=== PATIENT | female | born 1975 | race Caucasian/White ===

== ENCOUNTER 2020-10-11 07:39 | Emergency (ER) | payer MEDICAID, SELFPAY ==
[2020-10-11 07:42] VITALS: BP 136/95; PULSE 72; RESP 16; TEMP 36.2; O2SAT 100; BMI 39.9
--- NOTE | 2020-10-11 07:52 | ED.DCSUM_ITS ---
History of Present Illness Chief Complaint: Ear Problem Informant: Patient Onset: Today Maximum Severity: Mild Narrative: Patient presents complaining of right ear pain began this morning, She has a history of chronic intermittent right ear pain for years she has been seen by multiple providers including ENT the last ENT physician told her that they did not know why she was having the ear pain she believes her symptoms are related to some type of infection she indicates usually treated with an antibiotic pill eardrops and Percocet, she is recently moved to the [facility] and has no providers locally Complains of some sinus pressure no fever no cough no coronavirus no other complaints Past Medical History - Allergies and Home Meds Allergies/Adverse Reactions: Allergies gabapentin [From Neurontin] Adverse Reaction (Verified 10/11/20 07:42) PT UNSURE OF REACTION ketorolac [From Toradol] Adverse Reaction (Verified 10/11/20 07:42) Diarrhea tetracycline Adverse Reaction (Verified 10/11/20 07:42) PT UNSURE OF REACTION tramadol Adverse Reaction (Verified 10/11/20 07:42) Diarrhea Primary Care Physician: NOT,DEFINED [Primary Care Provider] - Past Medical History: - - Acute recurrent right ear pain Smoking Status: Current every day smoker Review of Systems General: Denies: Chills, Fever, Sweats Eyes: Denies: Visual changes - bilaterally, Diplopia ENT: Reports: Right ear pain, Rhinorrhea. Denies: Sore throat Cardiovascular: Denies: Chest pain, Palpitations Respiratory: Denies: Dyspnea, Cough, Dyspnea on exertion Gastrointestinal: Denies: Abdominal pain, Nausea, Vomiting, Diarrhea, Melena, Hematochezia Genitourinary: Denies: Dysuria, Hematuria, Frequency Musculoskeletal: Denies: Back pain, Extremity Pain Skin: Denies: Rash, Wounds Neurological: Denies: Headache, Weakness, Numbness Physical Exam Vital Signs/Narrative: Vital Signs Temp Pulse Resp BP Pulse Ox 10/11/20 07:42 97.1 F L 72 16 136/95 H 100 General: Well nourished, Well developed, No Acute Distress Head: Normocephalic, Atraumatic Eyes: Perrl, EOMI ENT: Moist mucous membranes, No rhinorrhea, - - Both TMs are clear there is some wax but no obvious signs of otitis she has discomfort when I pull on her right tragus but the canal appears normal she has minimal rhinorrhea the throat is unremarkable neck is supple no adenopathy the rest of the exam is unremarkable Neck: Supple, Nontender Cardiovascular: Regular rate, Regular rhythm, No murmurs Respiratory: No distress, CTA bilaterally, Chest nontender Abdomen: Soft, Nontender, Nondistended, Normal bowel sounds Back: Nontender, Normal Inspection Extremities: Nontender, No edema Skin: Normal color, No rash Neurological: Alert, Oriented x3, Cranial nerves II-XII grossly intact, Normal Strength, Normal Sensation Psychological: Normal affect, Normal Mood Diagnostic/Tx/Re-eval - Medical Decision Making Right ear pain intermittent she is concerned she has an infection I explained to the is no clinical findings to suggest that however given that it is a Monday she has no providers she indicates usually treated with an antibiotic Keflex will be given Cortisporin otic solution I explained to her Percocet is not provided for this condition she will be started on Naprosyn and should follow-up with her local provider of choice or on-call physicians return for change in symptoms in addition she will use [id number] Flonase Home stable Final impression is acute recurrent right ear pain ED Disposition - Plan for ED Patient: Instructions: ED Earache Without Infection (Adult) Prescriptions: Neomyc/Colist/Hydrocort/Thonzn [Cortisporin-Tc Ear Suspension] 10 ml OT 4X/DAY #1 drops.susp Prescription Printed Cephalexin [Keflex] 500 mg PO Q6 #40 cap Prescription Printed Naproxen [Naprosyn] 500 mg PO BID PRN #20 tab Prescription Printed Referrals: NOT,DEFINED [Primary Care Provider] -
== END 2020-10-11 08:12 | disposition home or self-care (01) ==
LOC: ED 08:03
PROVIDERS: Emergency Provider Emergency Medicine
DX: H92.01 Otalgia, right ear (principal); F17.200 Nicotine dependence, unspecified, uncomplicated; Z88.1 Allergy status to other antibiotic agents; Z88.5 Allergy status to narcotic agent; Z88.8 Allergy status to other drugs, medicaments and biological substances
CPT/HCPCS: 99282

== ENCOUNTER 2020-12-07 05:44 | Emergency (ER) | payer MEDICAID, SELFPAY ==
[2020-12-07 05:44] VITALS: BP 145/53; PULSE 78; RESP 16; TEMP 36.2; O2SAT 96; BMI 46.6
--- NOTE | 2020-12-07 06:04 | ED.VIS.GEN ---
History of Present Illness Chief Complaint: Upper Extremity Injury Informant: Patient Onset: Yesterday Narrative: Patient is a 45-year-old female presenting with right wrist pain. She is right-hand dominant. She states she went to coal picker a bag of salt at home yesterday when she suddenly had pain at the base of her thumb and into her wrist. It radiates up her arm. She now has pain with any type of lifting movement of her wrist. She denies any weakness. She denies any trauma. 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 No other complaints at this time. Patient last had Motrin today evening. Past Medical History - Allergies and Home Meds Allergies/Adverse Reactions: Allergies gabapentin [From Neurontin] Adverse Reaction (Verified 12/07/20 05:47) PT UNSURE OF REACTION ketorolac [From Toradol] Adverse Reaction (Verified 12/07/20 05:47) Diarrhea tetracycline Adverse Reaction (Verified 12/07/20 05:47) PT UNSURE OF REACTION tramadol Adverse Reaction (Verified 12/07/20 05:47) Diarrhea Primary Care Physician: Care Physician,No Primary [Primary Care Provider] - Past Medical History: - - Hypertension Surgical History: noncontributory Smoking Status: Current every day smoker Review of Systems General: Denies: Chills, Fever, Sweats Eyes: Denies: Visual changes - bilaterally, Diplopia ENT: Denies: Rhinorrhea, Sore throat Cardiovascular: Denies: Chest pain, Palpitations Respiratory: Denies: Dyspnea, Cough, Dyspnea on exertion Gastrointestinal: Denies: Abdominal pain, Nausea, Vomiting Musculoskeletal: Reports: Extremity Pain - Right hand/wrist. Denies: Myalgias, Arthralgias, Back pain Skin: Denies: Rash, Wounds Neurological: Denies: Headache, Weakness, Parasthesia, Numbness Physical Exam Vital Signs/Narrative: Vital Signs Temp Pulse Resp BP Pulse Ox 12/07/20 05:44 97.2 F L 78 16 145/53 H 96 Inital Vital Signs reviewed: Yes General: Well nourished, Well developed, Obese, No Acute Distress Head: Normocephalic, Atraumatic Eyes: Perrl, EOMI ENT: Moist mucous membranes, No rhinorrhea Neck: Supple, Nontender Cardiovascular: Regular rate, Regular rhythm, No murmurs, - - 2+ bilateral radial pulses Respiratory: No distress, CTA bilaterally, Chest nontender Abdomen: Soft, Nontender Back: Nontender, Normal Inspection Extremities: No edema, Tenderness - Right wrist at the base of the thumb and distal radial aspect. Pain is significantly worsened with abduction of the thumb. Area of pain is consistent with a de Quervain's tendinitis, - - Normal range of motion of shoulder and elbow with no bony tenderness or deformities. Skin: Normal color, No rash Neurological: Alert, Oriented x3, Cranial nerves II-XII grossly intact, Normal Strength, Normal Sensation Psychological: Normal affect, Normal Mood Diagnostic/Tx/Re-eval - Medical Decision Making Patient has atraumatic right thumb/wrist pain. It started when she was lifting a bag of salt. 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 Physical exam shows no bony tenderness and she is neuro vastly intact. Physical exam is consistent with a deeper veins tendinitis. Patient be treated with NSAID therapy as well as steroids. She is not a diabetic. She is given a Velcro splint for immobilization. She is given local PCP to follow-up with. He is given a note saying she may return to work but to allow wearing a splint. Patient is counseled on signs and symptoms requiring return to the emergency room. Patient verbalizes agreement and understand this plan. Patient discharged home in stable and improved condition. ED Disposition - Plan for ED Patient: Disposition: Home or Assisted Living Diagnosis: Tendinitis, de Quervain's Instructions: ED De Quervain Tenosynovitis Prescriptions: Prednisone [Deltasone] 40 mg PO DAILY #8 tab Prescription Printed Referrals: Leonarda Boyd DO [STAFF PHYSICIAN] - Additional Instructions: Alternate Tylenol and ibuprofen as well for pain. Ibuprofen and steroids might cause upset stomach and I recommend taking [id number] antacid such as Pepcid to help prevent this. Wear the splint is much as possible especially when doing repetitive activities with your wrist.
[2020-12-07] MEDS: Ibuprofen 600 MG Tablet PO (06:12)
[2020-12-07] MEDS: predniSONE 20 MG Tablet 40 MG PO (06:12)
== END 2020-12-07 06:25 | disposition home or self-care (01) ==
LOC: ED 06:23
PROVIDERS: Emergency Provider Emergency Medicine
DX: M65.4 Radial styloid tenosynovitis [de Quervain] (principal); I10 Essential (primary) hypertension; F17.200 Nicotine dependence, unspecified, uncomplicated; Z88.1 Allergy status to other antibiotic agents; Z88.5 Allergy status to narcotic agent; Z88.8 Allergy status to other drugs, medicaments and biological substances
CPT/HCPCS: 99284

== ENCOUNTER 2021-01-25 19:34 | Emergency (ER) | payer MEDICAID, SELFPAY ==
[2021-01-25 19:35] VITALS: BP 134/87; PULSE 74; RESP 16; TEMP 36.1; O2SAT 97; BMI 34.9
--- NOTE | 2021-01-25 19:59 | ED.VIS.GEN ---
History of Present Illness Chief Complaint: Lower Extremity Injury Detail of Chief Complaint: Right foot pain Informant: Patient Onset: Hours Context: Sudden Onset Timing: Continuous Quality: Pain dorsum right foot and anterior right ankle Location: Right foot and ankle Current Severity: Mild Maximum Severity: Moderate Worsened by: Palpation and weightbearing Relieved by: Better with rest Associated Symptoms: No associated symptoms Narrative: Patient is a 46-year-old woman who presents with right foot pain. She states this occurred while walking at work. There is no history of trauma. Denies paresthesia, anesthesia medics. She denies history of osteoporosis or osteopenia. She denies prior fracture of the right foot or ankle. She denies history of gout or pseudogout. She localizes the pain to the dorsal lateral surface of the right foot. Prior similar symptoms: No Recent Illness/Hospitalization: No Past Medical History - Allergies and Home Meds Allergies/Adverse Reactions: Allergies gabapentin [From Neurontin] Adverse Reaction (Verified 01/25/21 19:37) PT UNSURE OF REACTION ketorolac [From Toradol] Adverse Reaction (Verified 01/25/21 19:37) Diarrhea tetracycline Adverse Reaction (Verified 01/25/21 19:37) PT UNSURE OF REACTION tramadol Adverse Reaction (Verified 01/25/21 19:37) Diarrhea Primary Care Physician: [facility] Doctor,Out of [NON-STAFF] - Prior records reviewed: Yes Surgical History: noncontributory Lives: Alone Smoking Status: Current every day smoker Alcohol: Rare Drugs: None Review of Systems Musculoskeletal: Reports: Swelling, Extremity Pain. Denies: Myalgias, Arthralgias, Neck pain, Back pain Skin: Denies: Rash, Wounds Neurological: Reports: Weakness, Parasthesia, Numbness Hematologic: Reports: Easy bruising, Easy bleeding Physical Exam Vital Signs/Narrative: Vital Signs Temp Pulse Resp BP Pulse Ox 01/25/21 19:35 96.9 F L 74 16 134/87 H 97 Inital Vital Signs reviewed: Yes General: Well nourished, Well developed, Obese, No Acute Distress Head: Normocephalic, Atraumatic Eyes: Perrl, EOMI Cardiovascular: Regular rate, Regular rhythm Respiratory: No distress Extremities: No edema, Tenderness - Tenderness over the anterior talofibular ligament. There is no pain ovation over the lateral or medial malleolus. There is pain to palpation over the tarsal bones laterally. There is soft tissue swelling noted., - - PM PT pulse are palpable.. Negative for: Nontender Skin: Normal color, No rash, No Trauma, - Neurological: Alert, Oriented x3, Cranial nerves II-XII grossly intact, Normal Strength, Normal Sensation, Normal DTR Psychological: Depressed Diagnostic/Tx/Re-eval Chest X-Ray - ED: Read by ED Physician - View x-ray of the foot was interpreted by me at 2024 as negative. There is no acute process. There is spurring of the calcaneus noted. This is not the location of her discomfort. - Medical Decision Making Tremors to rule out foot strain/sprain versus fracture. ED Disposition - Plan for ED Patient: Disposition: Home or Assisted Living Diagnosis: Right foot strain Instructions: ED Foot Sprain Referrals: [facility] Doctor,Out of [NON-STAFF] - 1 Week if not improving Additional Instructions: 1. Recommend ice 6-8 times a day for 20 to 30 minutes per application 2. Avoid activity that causes you pain 3. Take Tylenol or anti-inflammatory for your discomfort.
--- NOTE | 2021-01-25 20:15 | RAD_ITS ---
INDICATION: Injury/Pain EXAMINATION/TECHNIQUE: X-RAY - RIGHT XR Foot Min 3 Views COMPARISON: None. FINDINGS: No acute fracture or malalignment. No blastic or lytic lesions. No degenerative changes are seen. The soft tissues are unremarkable. Plantar heel spur. RAD/Foot min 3 Views IMPRESSION: No acute radiographic abnormalities. Plantar heel spur. Electronically Signed: Harshal Abarca MD at 20:32 EDT Tel , Service support ,
== END 2021-01-25 20:49 | disposition home or self-care (01) ==
PROVIDERS: Emergency Provider Emergency Medicine
DX: S96.911A Strain of unspecified muscle and tendon at ankle and foot level, right foot, initial encounter (principal); Y93.01 Activity, walking, marching and hiking; F17.200 Nicotine dependence, unspecified, uncomplicated; Z88.1 Allergy status to other antibiotic agents; Z88.5 Allergy status to narcotic agent; Z88.8 Allergy status to other drugs, medicaments and biological substances
CPT/HCPCS: 73630; 99282

== ENCOUNTER 2021-04-27 07:55 | Emergency (ER) | payer MEDICAID, SELFPAY ==
[2021-02-08 09:24] VITALS: BMI 34.9
[2021-04-27 07:56] VITALS: BP 121/72; PULSE 77; RESP 16; TEMP 36.2; O2SAT 97; BMI 39.9
--- NOTE | 2021-04-27 08:06 | EDS_ITS ---
HPI History of Present Illness Chief Complaint: Lower Extremity Injury Informant: patient Onset/Context/Timing Onset: Days Context: Gradual Onset Timing: Intermittent Quality of Pain: Aching and Throbbing Current Severity: Moderate Maximum Severity: Severe Associated Symptoms Associated Symptoms: Negative for Parasthesia, Weakness and Loss of Funtion Narrative Narrative: Patient is a 46-year-old female without significant medical history who presents to the emergency department with right knee injury. Patient states that happened 10 days ago. States she was walking, and her knee gave out. She states that she was seen at [facility] and had plain films which are unremarkable. She states since then, she feels like the knee will stick or click. She also gets a small effusion at the end of the day. She has been taking anti- inflammatories with little improvement. She denies any weakness. She denies any fevers or chills. PFSH PFSH Home Medications hydrocodone-acetaminophen 1 tab PO Q6H PRN PRN 3 Days #10 tablet 04/27/21 [Rx Last Taken Unknown] methylprednisolone 4 mg PO UD #1 box 04/27/21 [Rx Last Taken Unknown] pramipexole mg 04/27/21 [History Last Taken Unknown] zolpidem 04/27/21 [History Last Taken Unknown] Allergy/AdvReac Type Severity Reaction Status Date / Time gabapentin [From Neurontin] AdvReac PT UNSURE Verified 04/27/21 07:56 OF REACTION ketorolac [From Toradol] AdvReac Diarrhea Verified 04/27/21 07:56 tetracycline AdvReac PT UNSURE Verified 04/27/21 07:56 OF REACTION tramadol AdvReac Diarrhea Verified 04/27/21 07:56 Surgical History History of cholecystectomy Social History Smoking Status: Current every day smoker ROS ROS ED Constitutional Constitutional ED: Denies chills or fever(s) Eyes Eyes: Denies blurry vision or change in vision ENT ENT ED: Denies ear pain or sore throat Cardiovascular Cardiovascular: Denies chest pain or palpitations Respiratory/Chest Respiratory/Chest: Denies cough, dyspnea or dyspnea on exertion Gastrointestinal Gastrointestinal: Denies abdominal pain, nausea or vomiting Genitourinary Genitourinary ED: Denies dysuria or urinary frequency Musculoskeletal Musculoskeletal: Denies arthralgias or myalgias Integumentary Denies rash Neurologic Neurologic: Denies headache(s) or paresthesias Psychiatric Psychiatric: Denies anxiety or depression Endocrine Endocrinology: Denies polydipsia or polyuria Allergic/Immunologic Allergic/Immunologic ED: Denies urticaria EXAM Physical Exam Const Vital Signs: 04/27/21 07:56 Temperature 97.2 F L Temperature Source Temporal Pulse Rate 77 Respiratory Rate 16 Blood Pressure 121/72 H Blood Pressure Mean 88 Pulse Ox 97 Oxygen Delivery Method Room Air Positive well nourished and well developed General Appearance ED: well developed HEENT Reports normocephalic, head/scalp atraumatic and moist mucous membranes Eyes PERRL and EOMs intact bilaterally Neck no lymphadenopathy and supple General: Negative for tenderness Chest Wall inspection of chest normal Resp normal respiratory effort and clear to auscultation bilaterally Cardio regular rate, regular rhythm and no murmurs GI normal to inspection, nondistended, normoactive bowel sounds Palpation: Negative for tender, guarding or rebound tenderness present Back/Spine no CVA tenderness Cervical Spine: Negative for cervical spine tenderness Thoracic Spine / Upper Back: Negative for thoracic spinal tenderness Extremity normal to inspection Extremity Narrative: There is no gross instability of the right knee. Her extension is preserved. There is trace effusion. There is no erythema. There is no pain with small arc range of motion. There is no guarding with apprehension of the patella. ACL and PCL to feel intact with drawer testing. She does have pain with varus and valgus loading over the menisci. There is no definitive catch. General Extremety ED: Negative for tenderness Neuro oriented x3 and CN's II-XII intact bilaterally Neuro Narrative: No focal deficits appreciated. Sensorium / Orientation: alert Psych mental status grossly normal Skin no rashes or lesions noted, no wounds and skin turgor normal MDM MDM MDM Narrative Medical decision making narrative: Clinically, clinically, based on the patient's symptoms, I do feel that she likely has meniscus injury. She is still able to bear weight. Patient replaced in an Judah wrap for comfort. She will be given a short course of anti-inflammatories and analgesics. I did auto club travel counselor her that she likely needs to follow-up with orthopedics for an MRI and she would benefit from physical therapy. She is comfortable with this plan of care. Impression 1. Right knee meniscus injury Discharge Plan Triage Chief Complaint: Lower Extremity Injury ED Provider: Catrachito Rivers Dx/Rx/DC Orders Instructions: ED Meniscal Injury Knee Poss Prescriptions: New hydrocodone-acetaminophen [hydrocodone-acetaminophen] 1 TABLET tablet 1 tab PO Q6H PRN PRN (Reason: Pain) 3 Days Qty: 10 RF: 0 methylprednisolone [methylprednisolone] 4 MG tablets,dose pack 4 mg PO UD Qty: 1 RF: 0 No Action pramipexole 1 mg tablet RF: 0 zolpidem 10 mg tablet RF: 0 Stand Alone Forms: ED Work / School Excuse Primary Care Provider: NOT,DEFINED Referrals: Hi Borges DO [STAFF PHYSICIAN] - 3-5 Days NOT,DEFINED [Primary Care Provider] -
== END 2021-04-27 08:21 | disposition home or self-care (01) ==
LOC: ED 08:17
PROVIDERS: Emergency Provider Emergency Medicine
DX: S83.8X1D Sprain of other specified parts of right knee, subsequent encounter (principal); X58.XXXD Exposure to other specified factors, subsequent encounter; F17.200 Nicotine dependence, unspecified, uncomplicated; Z79.1 Long term (current) use of non-steroidal anti-inflammatories (NSAID); Z79.52 Long term (current) use of systemic steroids; Z79.899 Other long term (current) drug therapy
CPT/HCPCS: 99282

== ENCOUNTER 2021-12-28 18:37 | Emergency (ER) | payer MEDICAID, SELFPAY ==
[2021-12-28 18:38] VITALS: BP 132/95; PULSE 98; RESP 18; TEMP 35.9; O2SAT 98; BMI 41.5
--- NOTE | 2021-12-28 18:41 | RAD_ITS ---
STUDY: X-RAY - RIGHT KNEE REASON FOR EXAM: Female, 46 years old. PT C/O CHRONIC RIGHT KNEE PAIN GOING ON FOR OVER 5 YEARS THAT IS GETTING WORSE TECHNIQUE: 3 view(s) of the knee. COMPARISON: None. FINDINGS: Normal visualized distal femur. Normal visualized proximal tibia and fibula. Normal proximal tibiofibular articulation. There is no demonstrated fracture. There is moderate degenerative arthrosis of the medial femorotibial compartment with moderate joint space narrowing. There is mild degenerative arthrosis of the lateral femorotibial compartment. There is moderate degenerative arthrosis of the patellofemoral articulation. There is a soft tissue prominence in the suprapatellar region suggesting a small volume joint effusion. The soft tissue structures are unremarkable. RAD/Knee 1 or 2 Views IMPRESSION: Degenerative arthrosis. Electronically Signed: Chuck Elliott MD at 19:46 EST ,
[2021-12-28] MEDS: Lidocaine 1% (20 ml mdv) 20 ML Vial INFILT (21:37)
[2021-12-28] MEDS: morphine 8 MG/ML Syringe IM (21:52)
[2021-12-28] MEDS: Ondansetron 4 MG/2 ML Vial IM (21:52)
[2021-12-28 22:33] LABS: Pathologist Comment May follow
--- NOTE | 2021-12-28 23:08 | EDS_ITS ---
HPI History of Present Illness Chief Complaint: Lower Extremity Injury Informant: patient Narrative Narrative: 46-year-old female presenting with right knee pain. Patient states she has chronic knee pain and has been having problems over the past 5 years. She states her knee pain has worsened today. She denies any recent trauma. She states it occasionally feels like it locks up. Denies fever. Denies chest pain or shortness of breath. Denies other complaints. Prior similar symptoms: Yes Recent Illness/Hospitalization: No PFSH PFSH Home Medications pramipexole 1 mg BID 04/27/21 [History Last Taken Unknown] naproxen 500 mg PO BID PRN 10 Days #20 tab 12/28/21 [Rx Last Taken Unknown] Allergy/AdvReac Type Severity Reaction Status Date / Time gabapentin [From Neurontin] AdvReac PT UNSURE Verified 12/28/21 18:40 OF REACTION ketorolac [From Toradol] AdvReac Diarrhea Verified 12/28/21 18:40 tetracycline AdvReac PT UNSURE Verified 12/28/21 18:40 OF REACTION tramadol AdvReac Diarrhea Verified 12/28/21 18:40 Surgical History History of cholecystectomy Social History Smoking Status: Current every day smoker tobacco type: cigarettes ROS ROS ED Constitutional Constitutional ED: Denies fever(s) Cardiovascular Cardiovascular: Denies chest pain or palpitations Respiratory/Chest Respiratory/Chest: Denies cough or dyspnea Gastrointestinal Gastrointestinal: Denies abdominal pain, diarrhea, nausea or vomiting Musculoskeletal Musculoskeletal: Reports other Details: Right knee pain ; Denies myalgias Integumentary Denies rash Neurologic Neurologic: Denies headache(s) EXAM Physical Exam Const Vital Signs: 12/28/21 18:38 Temperature 96.7 F L Temperature Source Temporal Pulse Rate 98 Respiratory Rate 18 Blood Pressure 132/95 H Blood Pressure Mean 107 Pulse Ox 98 Oxygen Delivery Method Room Air Positive well nourished and well developed General Appearance ED: well developed HEENT Reports normocephalic and head/scalp atraumatic Eyes PERRL and EOMs intact bilaterally Neck supple General: Negative for tenderness Chest Wall inspection of chest normal Resp normal respiratory effort and clear to auscultation bilaterally Cardio regular rate and regular rhythm GI non-tender and non-distended Palpation: soft; Negative for guarding or rebound tenderness present no CVA tenderness Extremity normal to inspection Extremity Narrative: Diffuse right knee tenderness. No erythema or warmth. Painful range of motion. Normal distal pulses. Neuro oriented x3 Sensorium / Orientation: alert Psych mental status grossly normal MDM MDM MDM Narrative Medical decision making narrative: Patient was given morphine, Zofran IM. Right knee x-ray read by myself and radiology shows degenerative arthrosis. Due to significant pain with range of motion arthrocentesis was performed. Prepped and draped in sterile fashion. 15 cc clear yellow fluid was drained. Synovial fluid was sent for culture, cell count, and crystals. Synovial WBC 391. Culture and crystals are pending. Patient is resting comfortably. She is given prescription for Naprosyn. Advised to follow-up with PCP or orthopedics. Advised return to ED if worsening complaints. Lab Data Attestation: I reviewed the patient's lab results. Labs: Laboratory Results - last 24 hr 12/28/21 22:10 Fluid Crystals See PATH REV Fluid Crystal Source SYNOVIAL Fl Crystal Path Review Will follow Synovial Source L KNEE Synovial Color Yellow Synovial Appearance Sl hazy Synovial WBC 0.3910 H Synovial RBC 35 H Synovial Tot Cell Ct 0.4410 H Synov Polynuclear WBCs 0.129 Synov Mononuclear WBCs 0.262 Synovial Neutrophils 57 H Synovial Lymphocytes 8 Synovial Monocytes 35 Synovial Polynuclear % 33.0 Synovial Mononuclear % 67.0 Synovial Path Comment May follow Radiography Diagnostic Testing: Clinical Impression(s) from Imaging Studies Knee X-Ray 12/28/21 18:41 IMPRESSION: Degenerative arthrosis. Electronically Signed: Chuck Elliott MD at 19:46 EST Reading Location ID and State: [address] [place] [address] , Service support , Discharge Plan Triage Chief Complaint: Lower Extremity Injury ED Provider: Ying Rush Dx/Rx/DC Orders Clinical Impression: Chronic knee pain Instructions: ED Knee Pain of Uncertain Cause Prescriptions: New naproxen 500 mg tablet 500 mg PO BID PRN 10 Days Qty: 20 RF: 0 No Action pramipexole 1 mg tablet 1 mg BID RF: 0 Primary Care Provider: Care Physician,No Primary Referrals: Hi Borges DO [STAFF PHYSICIAN] - Eddie Camejo DO [NON-STAFF] - Care Physician,No Primary [Primary Care Provider] - Disposition Disposition: Home, Self Care
[2021-12-28 23:26] LABS: AUTO B FLUID DILUENT BKGD CT WBC <0.1 RBC <0.01 (W<.1,R<.01); Appearance /Synovial Fluid Sl hazy (CLEAR); CRYSTALS, BODY FLUID See PATH REV; Color / Synovial Fluid Yellow (Pale Yellow); Source / Synovial Fluid L KNEE; Source- Body Fluid SYNOVIAL
[2021-12-28 23:27] LABS: RBC /Synovial Fluid 35 /mm3 (0); Synovial Fld Mononuclear WBC # 0.262 10^3/ul; Synovial Fld Polynuclear WBC # 0.129 10^3/uL
[2021-12-28 23:41] LABS: Body Fluid QC Type(s) BF2Q,BF3Q; Lymph 8 %; Monocyte /Synovial Fluid 35 %; Neutrophil 57 % (0-25)
[2021-12-29 00:10] VITALS: BP 135/71; PULSE 97; RESP 16; O2SAT 95
[2021-12-29 15:11] LABS: Pathologist Review Reviewed
== END 2021-12-29 00:11 | disposition home or self-care (01) ==
PROVIDERS: Emergency Provider Emergency Medicine; Visit Provider Emergency Medicine
DX: M25.561 Pain in right knee (principal); G89.29 Other chronic pain; M17.11 Unilateral primary osteoarthritis, right knee; F17.210 Nicotine dependence, cigarettes, uncomplicated
CPT/HCPCS: 73560; 87070; 87075; 87205; 89050; 89051; 89060; 99282; J2405

== ENCOUNTER 2022-01-19 11:30 | Outpatient (RCR) | payer MEDICAID, SELFPAY ==
--- NOTE | 2022-01-07 14:47 | HP.PTEVAL_ITS ---
Patient's Visit Information FREDO SOUZA is a 46 year old F referred to Physical Therapy by JAYCE Ridley with a diagnosis of RIGHT KNEE PAIN, OA AND INSTABILITY. Date of Evaluation: 01/07/22 Physical Therapist: Mariely Rodriguez PT, Cert MDT - Visit Plan Frequency: 2-3x /Week Duration: 4-6 Weeks Plan: CHECK ON PENDING MRI DATE AND RESULTS. AQUATIC THERAPY FOR PAIN RELIEF AND RIGHT LE ROM, STRETCHING AND STRENGTHENING TO HELP MEET SET GOALS. PATIENT AGREEABLE. - Subjective Work/Leisure: [employer]. INVOLVES A LOT OF WALKING. A LOT OF LIFTING TOO. HAIRDRESSER TOO. Disability: NO. Present symptoms: RIGHT KNEE PAIN. Present since: CHRONIC BUT FLARED UP A FEW MONTHS AGO AND CAN BARELY WALK NOW. Pain Scale: WORST 10/10, LEAST 6/10. Currently: 7/10. Commenced as a result of: WEAR AND TEAR. Symptoms at onset: RIGHT KNEE. Worse: WALKING, SITTING, LYING DOWN, STANDING, TRYING TO GET IN THE SHOWER (TALL GARDEN TUB), JERKING FROM RESTLESS LEGS (HAS HAD IT FOR 18 YEARS). Better: ICE, GOT KNEE BRACE TODAY THAT MAKES KNEE FEEL MORE STABLE. Disturbed sleep: YES. Previous history/Previous treatment: NONE. Treatment this episode: PT CONSULT AND KNEE BRACE. 12/28/21 WENT TO THE ED AND GOT A SHOT FOR THE PAIN AND THEN THEY DRAINED HER KNEE AND DID X-RAY. VERY PAINFUL PER PATIENT. Gait: UNLIMITED BUT PAINFUL AND LIMPING. Accidents: FALL GETTING OUT OF BATH TUB MONDAY BUT DENIES SERIOUS INJURY. Unexplained weight loss: NO. Imaging: RIGHT KNEE X-RAY - [facility]: STUDY: X-RAY - RIGHT KNEE. REASON FOR EXAM: Female, 46 years old. PT C/O CHRONIC RIGHT KNEE PAIN. GOING ON FOR OVER 5 YEARS THAT IS GETTING WORSE. TECHNIQUE: 3 view(s) of the knee. COMPARISON: None. FINDINGS: Normal visualized distal femur. Normal visualized proximal tibia and. fibula. Normal proximal tibiofibular articulation. There is no. demonstrated fracture. There is moderate degenerative arthrosis of the medial femorotibial. compartment with moderate joint space narrowing. There is mild. degenerative arthrosis of the lateral femorotibial compartment. There is. moderate degenerative arthrosis of the patellofemoral articulation. There. is a soft tissue prominence in the suprap atellar region suggesting a small. volume joint effusion. The soft tissue structures are unremarkable. . RAD/Knee 1 or 2 Views. IMPRESSION: Degenerative arthrosis. . Electronically Signed: Chuck Elliott MD. at 19:46 EST. Reading Location ID and State: [facility] / [place]. , Service support , . PMH/Recent major surgery: GASTRIC BYPASS 2000 AND C-CESTION SX'S ONLY. OTHER: BELOW HISTORY FROM PATI PITTMAN'S VISIT REVIEWED WITH PATIENT: Details: Parts of this documentation were recorded by a scribe, this documentation accurately reflects the service provided and the decisions made by me, JAYCE Ridley 01/03/22 0903. FREDO SOUZA is a 46 year old F NEW patient here today for right knee pain. She states that she fell a few days ago on the ice and she felt something tear over the medial side of the knee and so she went to the ER. She reports having an aspiration of the knee at the ER. She states that she does walk at work alot and her pain is worse with ambulation. She has tried Tylenol for the pain. Aleve and ibuprofen cause her to have an upset stomach. She has swelling and pain. She has all anterior medial knee. Denies any hx of surgery or injections or PT for the knee. She has tried a HEP at home which included stretching. She states that sometimes the pain is so severe she will vomit. She states that her knee wants to lock up on her and she feels that her knee will give out at times. She does have painful popping of the knee which can occur multiple times a day. She has tried a PTC knee brace which wasn't effective. She has had a few past injuries of the right knee as she played softball in high school. - Objective THIS PATIENT AMBULATES INDEP'LY INTO PT WITHOUT ANY ASSISTIVE DEVICES, WEARING RIGHT KNEE BRACE AND LIMPING ON RIGHT LE. SHE IS UE DEPENDENT TO TRANSFER SIT TO STAND. GAIT AND TRANSFERS ARE VERY GUARDED. SHE IS ABLE TO INDEP'LY DON AND DOFF RIGHT KNEE BRACE. SHE IS VERY VERY SENSATIVE TO VERY LIGHT TOUCH OF THE RIGHT KNEE ANTERIOR, POSTERIOR, MEDIALLY AND LATERALLY. THERE IS MILD RIGHT KNEE SWELLING COMPARED TO LEFT. SHE REPORTS SHE HAS BEEN HAVING SO MUCH PAIN SHE HAS STOPPED DRIVING BECAUSE SHE DOESN'T FEEL SAFE. RIGHT KNEE AROM IN SUPINE WITH A HEEL SLIDE = -35 DEG EXT TO 58 DEG FLEXION WITHOUT HER KNEE BRACE ON. C/O PAIN BEFORE, DURING AND AFTER TESTING. STRENGTH: RIGHT HIP 4/5, KNEE 2/5 AND ANKLE 5/5. - Balance/Special Test Scores Lower Extremity Functional Score: 19 - Goals Goal 1:: DECREASE C/O RIGHT KNEE PAIN Goal Time Frame: 4-6 Weeks Goal 2:: IMPROVE FUNCTIONAL ROM OF RIGHT KNEE TO EASE ADL'S. Goal Time Frame: 4-6 Weeks Goal 3:: IMPROVE FUNCTIONAL STRENGTH OF LLE TO EASE ADL'S Goal Time Frame: 4-6 Weeks Goal 4:: INDEP AND SAFE WITH GAIT ON LEVEL SURFACES AND UP AND DOWN STEPS WITH LEAST AD DEVICE AND DEVIATIONS. Goal Time Frame: 4-6 Weeks Goal 5:: PATIENT WILL BE INDEP WITH A HEP FOR CONTINUED IMRPVOEMENT ONCE FORMAL PHYSICAL THERAPY CONCLUDES. Goal Time Frame: 4-6 Weeks - Anticipated Interventions Patient/Client Instruction: Educate patient on: Condition, Plan of Care, Risk Factors For the Purpose of:: To improve self management Therapeutic Exercise to Include: Strength training, Balance training, Body mechanics, Postural training, Flexibilty training, Gait and locomotor training, Neuromotor development, In an aquatic setting For the Purpose of:: To decrease pain, To increase ROM, To improve muscle performance and motor function, To increase tolerance to activity/condition/position, To improve ability of physical actions for home/community/work/leisure, To improve gait and locomotor functions Thank you for the opportunity to evaluate your patient. For Medicare and Medicare HMO plans, please review the plan of care and approve it. It will need to be FAXED BACK to us at [phone] for Medicare purposes. For Medicare only, by signing this I certify the plan of care. Please let me know if there are questions or concerns regarding this plan of care. Physician Signature: Date:
== END 2022-01-19 19:00 | disposition home or self-care (01) ==
LOC: PT 11:30
PROVIDERS: Referring Provider Physician Assistant; Visit Provider Physician Assistant
DX: M25.561 Pain in right knee (principal); M23.51 Chronic instability of knee, right knee; M17.11 Unilateral primary osteoarthritis, right knee
CPT/HCPCS: 97113; 97162

== ENCOUNTER 2022-01-21 17:48 | Outpatient (CLI) | payer MEDICAID, SELFPAY ==
--- NOTE | 2022-01-21 17:49 | MRI_ITS ---
STUDY: MRI RIGHT KNEE REASON FOR EXAM: Female, 47 years old. Knee pain TECHNIQUE: Standardized fat and water weighted pulse sequences were obtained in all 3 orthogonal planes. COMPARISON: 12/28/2021 FINDINGS: Normal medial meniscus. There is diffuse, greater than 50% thickness articular cartilage loss of the medial femorotibial compartment. There is mild osteoarthritic spur formation of the medial knee compartment. Normal medial collateral ligamentous complex (MCL). Normal distal semimembranosus, gracilis and semitendinosus tendons. Normal lateral meniscus. There is diffuse, less than 50% thickness articular cartilage loss of the lateral femorotibial compartment. There is mild osteoarthritic spur formation of the lateral knee compartment. Normal proximal tibiofibular articulation. Normal lateral collateral (fibular) ligament. Normal popliteus tendon. Normal biceps femoris tendon. Normal anterior cruciate ligament (ACL). Normal posterior cruciate ligament (PCL). Shallow trochlear groove with lateral subluxation of patella and edema superolateral Hoffa''s fat pad consistent with patellofemoral maltracking. Full-thickness chondral loss of the median ridge of the patella with subchondral edema. Normal medial and lateral patellar retinaculum. Normal quadriceps tendon. Normal patellar tendon. Normal Hoffa''s fat pad. There is a small volume joint effusion. There is a Riley''s cyst. The soft tissues are unremarkable. The otherwise visualized osseous structures are unremarkable. MRI/Lower Ext Joint Only (Routine) IMPRESSION: 1. Moderate arthrosis. 2. Patellofemoral maltracking with full-thickness chondral loss and subchondral edema in the median ridge of the patella. 3. Small joint effusion with a Riley''s cyst. Electronically Signed: Nirav Mauricio MD at 16:20 EDT ,
== END 2022-01-21 23:59 | disposition home or self-care (01) ==
LOC: MRI 17:49
PROVIDERS: Visit Provider Physician Assistant
DX: M17.11 Unilateral primary osteoarthritis, right knee (principal); M25.561 Pain in right knee; G89.29 Other chronic pain
CPT/HCPCS: 73721